=== PATIENT | male | born 1965 | race Caucasian/White ===

== ENCOUNTER 2020-06-15 10:03 | Day surgery (SDC) | payer OTHER ==
[~2020-06-15] VITALS: Ht 177.8 cm; Wt 102.3 kg
[~2020-06-15 10:03] MED LIST: B-1100 M1 PO; BUME2 PO; CARAFATE1 GM/10 M1 PO; CYCL10 PO; DIGOX125 MC1 PO; DIGOX250 MC1 PO; FOLI1 PO; HYDPAM25 PO; JANTOVEN2 MG PO; K-Dur20 MEQ PO; LEVSOD25 PO; LOSA25 PO; LOSA50 PO; MAGNESIUM OXID400 M1 PO; METO25ER PO; METO50ER PO; MIDO5 PO; POTA10T PO; Protonix40 M1 PO; SPIR25 PO; Vitamin D2000 UNIT PO; WARF3 PO; WARF5 PO; ZINC OXIDE57 GM TOP
--- NOTE | 2020-06-15 14:49 | NUR ---
DISCHARGE PT A&OX3 AND DENIED ANY PAIN DURING RECOVERY. RIGHT RADIAL SITE TR BAND REMOVED-WHITE BOARD AND CLOTH DOT IN PLACE.-CDI NO HEMATOMA NOTED. DISCHARGE PAPERWORK GONE OVER WITH PT. PT VERBALLY STATED THE UNDERSTANDING OF THE DISCHARGE EDUCATION AND DENIED ANY QUESTIONS AT THIS TIME. IV DC'S WITH CANULA IN TACT. PT ABLE TO DRESS SELF INDEPENDANTLY. PT WHEELED OUT BY THIS NURSE TO PRIVATE CAR WITH BEATER ROOM SUPERVISOR.
== END 2020-06-15 14:45 | disposition home or self-care (01) ==
LOC: MHTC 10:03
DX: I42.9 Cardiomyopathy, unspecified (principal); I48.19 Other persistent atrial fibrillation; I82.401 Acute embolism and thrombosis of unspecified deep veins of right lower extremity; K27.4 Chronic or unspecified peptic ulcer, site unspecified, with hemorrhage; Z79.01 Long term (current) use of anticoagulants
CPT/HCPCS: 85347; 93458; 99152; 99153; C1769; C1894; J1644; J2250; J3010; J7030; J7050; Q9967